=== PATIENT | male | born 1995 ===

== ENCOUNTER 2017-01-21 23:51 | Emergency (ER) | payer MEDICAID ==
[~2017-01-21] VITALS: Ht 167.6 cm; Wt 72.7 kg
[2017-01-21 23:55] VITALS: Ht 167.6 cm; Wt 72.7 kg
[2017-01-22] MEDS ORDERED: GUAIFENESIN LA 600 MG TABSR PO ONE
[2017-01-22] MEDS ORDERED: IPRATROPIUM (NEB) 0.5 MG/2.5 ML AMP INH STA (00:01)
[2017-01-22] MEDS ORDERED: ALBUTEROL 0.5% (NEB) 2.5 MG/0.5 ML AMP INH STA (00:01)
--- NOTE | 2017-01-22 00:46 | RADRPT ---
PROCEDURE: XR Chest. CLINICAL INDICATION: 21-year-old male with shortness of breath. TECHNIQUE: Single frontal view of the chest was obtained. COMPARISON: None FINDINGS: Bilateral Barrett rods extending from the level of T3 to the upper lumbar spine. There is a levo scoliosis of the lower thoracic spine and lumbosacral junction. The heart, cardiomediastinal silhou ette and hilar structures are normal. The pulmonary vasculature is normal. There is a left-sided ao rta. There is a suboptimal inspiratory effort with vascular crowding and compressive atelectasis in the bases of the lungs. There is plate-like atelectasis adjacent to the left diaphragm. The costoph renic angles are normal. IMPRESSION: 1. Suboptimal inspiratory effort with vascular crowding and compressive atelectasis in the bases of the lungs. Plate-like atelectasis in the left lower lobe. 2. No convincing evidence of active cardiopulmonary disease. RPTAT:AAJJ Physician Carolina Date Time Electronically viewed and signed by Physician Carolina on 01/22/2017 00:45 LALIT/
[2017-01-22] MEDS ORDERED: GUAI120011 PO (00:59)
[2017-01-22 01:03] VITALS: BP 133/96; PULSE 98; RESP 22; TEMP 98.6
--- NOTE | 2017-01-22 01:45 | ERD ---
ER Documentation Chief Complaint Date/Time DATE: 01/22/17 TIME: 01:38 Chief Complaint SOB HPI 21-year-old man with a history of multiple sclerosis and recent diagnosis of pneumonia brought in by EMS from home for shortness of breath, chest congestion , and decreased oxygen saturation. Oxygen saturation at home was about 88-90%, patient does not use oxygen at home. Patient was recently treated as an inpatient at [facility] for pneumonia and was discharged with a prescription for oral levofloxacin. Mom states he had 1 dose of levofloxacin today and is due for another 7 day course. Patient is chronically bedbound and does have decreased respiratory effort for a few years, but mom states his oxygen saturation is usually between 96 and 100%. He has had no vomiting or diarrhea, no chest pain, no abdominal pain. Patient was transported here by EMS otherwise without complications. ROS All systems reviewed and are negative except as per history of present illness. Medications Home Meds Active Scripts Guaifenesin (Mucinex) 1,200 Mg Tab.er.12h, 600 MG PO BID Y for NASAL CONGESTION , #14 TAB Prov:SUZIE GREEN MD 01/22/17 PMhx/Soc Multiple sclerosis, recent pneumonia, bilateral upper and lower extremity paresis History of Surgery: Yes (SCOLIOSIS, BILAT PEDAL TENDON STRETCH) Anesthesia Reaction: No Hx Neurological Disorder: Yes (MUSCULAR DYSTROPHY) Hx Respiratory Disorders: Yes (ASTHMA) Hx Cardiac Disorders: No Hx Psychiatric Problems: No Hx Miscellaneous Medical Probl: No Hx Alcohol Use: No Hx Tobacco Use: No Smoking Status: Never smoker FmHx Family History: No diabetes Physical Exam Vitals Vital Signs Date Time Temp Pulse Resp B/P Pulse Ox O2 Delivery O2 Flow Rate FiO2 01/22/17 01:03 98.6 98 22 133/96 99 Room Air 01/22/17 00:10 Nasal Cannula 2.0 01/22/17 00:10 Nasal Cannula 2 01/22/17 00:10 98.6 84 22 145/82 95 Nasal Cannula 2.0 01/21/17 23:55 98.6 93 22 145/82 90 Physical Exam GENERAL: Well-developed, well-nourished, dyspneic, afebrile HEENT: Moist mucous membranes, pink conjunctiva, no cervical spine tenderness or step-off deformities, no goiter, no jaundice or icterus, extraocular movements intact without pain. No submandibular induration, and no pharyngeal erythema NEURO: Alert and oriented 3, cranial nerves II through XII intact bilaterally, pupils equal round reactive to light, bilateral upper and lower extremity paresis CARDIAC: Regular rate and rhythm, no murmurs rubs or gallops LUNGS: Poor breath sounds bilaterally ABDOMEN: Soft nontender, no guarding, no rigidity, no rebound, no psoas sign no obturator sign. Normoactive bowel sounds SKIN: Warm and dry to touch, no abrasions, contusions, or hematomas, no lacerations, no ecchymosis, no target lesions, and without ulcers EXTREMITIES: No clubbing cyanosis or edema, bilateral upper and lower extremity muscular wasting PSYCH: Normal affect without agitation or irritability Results 24 hrs Current Medications Medications (Trade) Dose Ordered Sig/Demetrius Route PRN Reason Start Time Stop Time Status Last Admin Dose Admin Guaifenesin (Mucinex) 600 mg ONCE ONCE PO 01/22/17 00:00 01/22/17 00:01 DC 01/22/17 00:38 Albuterol (Proventil 0.5% (Neb)) 10 mg ONCE STAT INH 01/22/17 00:01 01/22/17 00:02 DC Ipratropium Roll (Atrovent 0.02% (Neb)) 1 mg ONCE STAT INH 01/22/17 00:01 01/22/17 00:02 DC Procedures/MDM Patient was placed on cardiac sonographer and initial oxygen saturation on room air was 90%. Pulse 90 bpm. I ordered suction of respiratory secretions and administered albuterol 10 mg via nebulizer and ipratropium 1 mg via nebulizer. Patient was also given guaifenesin 600 mg p.o. 1 After above interventions patient's symptoms One view chest x-ray performed, read by me reveals a left-sided lower lobe atelectasis concerning for early pneumonia, no pneumothorax, no end of the diaphragm. Critical Care: Time: 45 minutes, this was time separate from other billable procedures. Treatments/Evaluations: Close monitoring and treatment of unstable vital signs, cardiorespiratory, and neurologic status, while maintaining tight balance of fluid, respiratory, and cardiac interventions. Differential diagnoses considered, included but not limited to acute coronary syndrome, pulmonary embolism, aortic dissection, abdominal aortic aneurysm, sepsis, stroke, meningitis, encephalitis, pneumonia, appendicitis, cholecystitis , bowel obstruction, pyelonephritis, nephrolithiasis, cystitis, as well as metabolic, hematologic, and electrolyte abnormalities. As well as abscess, cellulitis, fractures, and dislocations. Patient feels much better at this time, and vital signs are normal, symptoms have improved. I did give strict instructions to return to the ED if symptoms continue or worsen, patient will otherwise follow-up with primary care physician. Patient understood instructions and agreed to plan. Disclaimer: Inadvertent spelling and grammatical errors are likely due to EHR/ dictation software use and do not reflect on the overall quality of patient care. Also, please note that the electronic time recorded on this note does not necessarily reflect the actual time of the patient encounter. Departure Diagnosis: Primary Impression: Pneumonia Pneumonia type: due to unspecified organism Laterality: left Lung location : lower lobe of lung Qualified Code: J18.1 - Pneumonia of left lower lobe due to infectious organism Additional Impression: Multiple sclerosis Condition: Good Patient Instructions: Pneumonia (Adult) SUZIE GREEN MD Jan 22, 2017 01:44
== END 2017-01-22 01:07 | disposition home or self-care (01) ==
LOC: E/R 23:51
DX: J18.1 Lobar pneumonia, unspecified organism (principal); G35 Multiple sclerosis; J45.909 Unspecified asthma, uncomplicated
CPT/HCPCS: 71010; Z7502; Z7610